=== PATIENT | female | born 1960 | race Caucasian/White ===

== ENCOUNTER 2021-07-24 07:35 | Day surgery (SDC) | payer BC, MEDICARE ==
[~2021-07-24 07:35] MED LIST: Lactated Ringers 1,000 ML IV SCH; Sodium Chloride 0.9% 10 ML Syringe FLUSH PRN
[2021-07-24] MEDS ORDERED: Propofol 200 MG/20 ML SDV IV ONE (07:36)
[2021-07-24] MEDS ORDERED: Lidocaine 2% 5 ML SDV INJECT ONE (07:36)
--- NOTE | 2021-07-24 09:17 | PCM.HP.2 ---
H&P History of Present Illness - General Date of Service: 07/24/21 Admit Problem/Dx: Admission Diagnosis/Problem Admission Diagnosis/Problem Colonoscopy Source of Information: Patient, Old Records History Limitations: Reports: No Limitations - History of Present Illness Initial Comments - Free Text/Narative: Here for colonoscopy, last one 2011. FH Rectal Cancer in sister - Related Data Allergies/Adverse Reactions: Allergies Allergy/AdvReac Type Severity Reaction Status Date / Time acetaminophen [From Percocet] Allergy Respiratory Verified 07/24/21 08:06 Distress blue dye Allergy Hives Verified 07/24/21 08:09 levothyroxine Allergy Itching Verified 07/24/21 08:08 meperidine [From Demerol] Allergy Respiratory Verified 07/24/21 08:07 Distress morphine Allergy Respiratory Verified 07/24/21 08:05 Distress oxycodone [From Percocet] Allergy Respiratory Verified 07/24/21 08:06 Distress red dye Allergy Hives Verified 07/24/21 08:09 yellow dye Allergy Hives Verified 07/24/21 08:09 Home Medications: Home Meds Aspirin [Adult Low Dose Aspirin EC] 81 mg PO DAILY 07/23/21 [History] Cyclobenzaprine [Flexeril] 10 mg PO BEDTIME 07/23/21 [History] Gabapentin [Neurontin] 600 mg PO TID 07/23/21 [History] Levothyroxine 75 mcg PO ACBREAKFAST 07/23/21 [History] Liothyronine Sodium [Cytomel] 5 mcg PO DAILY 07/23/21 [History] Multivitamin 1 each PO DAILY 07/23/21 [History] atorvaSTATin Calcium [Lipitor] 20 mg PO DAILY 07/23/21 [History] diphenhydrAMINE [Benadryl] 100 mg PO ASDIRECTED PRN 07/23/21 [History] traMADol [Ultram] 50 mg PO Q6H PRN 07/23/21 [History] Past Medical History HEENT History: Reports: Cataract Cardiovascular History: Reports: High Cholesterol Respiratory History: Reports: None Genitourinary History: Reports: None PRODUCTION HAND History: Reports: Musculoskeletal History: Reports: Neck Pain, Chronic Neurological History: Reports: None Psychiatric History: Reports: None Endocrine/Metabolic History: Reports: Hypothyroidism Hematologic History: Reports: None Immunologic History: Reports: None Oncologic (Cancer) History: Reports: Thyroid Dermatologic History: Reports: None - Infectious Disease History Infectious Disease History: Reports: Chicken Pox, Measles, Mumps - Past Surgical History Head Surgeries/Procedures: Reports: None HEENT Surgical History: Reports: Cataract Surgery, Laser Surgery Cardiovascular Surgical History: Reports: None Respiratory Surgical History: Reports: None GI Surgical History: Reports: Colonoscopy Female Surgical History: Reports: Section, Tubal Ligation Endocrine Surgical History: Reports: None Neurological Surgical History: Reports: C-Spine Musculoskeletal Surgical History: Reports: None Oncologic Surgical History: Reports: None Dermatological Surgical History: Reports: Skin Biopsy Social & Family History - Family History Family Medical History: Unobtainable - Tobacco Use Tobacco Use Status *Q: Never Tobacco User - Caffeine Use Caffeine Use: Reports: Coffee - Recreational Drug Use Recreational Drug Use: No H&P Review of Systems - Review of Systems: Review Of Systems: Comprehensive ROS is negative, except as noted in HPI. Exam - Exam Exam: See Below - Vital Signs Vital Signs: Last Vital Signs Temp 99.0 F 07/24/21 07:55 Pulse 76 07/24/21 07:55 Resp 20 07/24/21 07:55 BP 117/81 07/24/21 07:55 Pulse Ox 94 L 07/24/21 07:55 Weight: 65.317 kg - Exam General: Alert, Oriented Lungs: Clear to Auscultation, Normal Respiratory Effort Cardiovascular: Regular Rate, Regular Rhythm GI/Abdominal Exam: Soft, Non-Tender Sepsis Event Note - Focused Exam Vital Signs: Vital Signs Temp Pulse Resp BP Pulse Ox 07/24/21 07:55 99.0 F 76 20 117/81 94 L Problem List Initiated/Reviewed/Updated: Yes Orders Last 24hrs: Active Orders 24 hr Category Date Time Status Patient Status [ADT] Routine ADT 07/24/21 07:30 Active Patient to Empty Bladder [RC] ASDIRECTED Care 07/24/21 07:30 Active Verify Patient Consent Obtain [RC] ASDIRECTED Care 07/24/21 07:30 Active Nothing Per Oral Diet [DIET] Diet 07/24/21 Breakfast Ordered Lactated Ringers [Ringers, Lactated] 1,000 ml Med 07/24/21 07:30 Active IV ASDIRECTED Sodium Chloride 0.9% [Saline Flush] Med 07/24/21 07:30 Active 10 ml FLUSH ASDIRECTED PRN Peripheral IV Insertion Adult [OM.PC] Routine Oth 07/24/21 07:30 Ordered Resuscitation Status Routine Resus Stat 07/23/21 13:31 Ordered Medication Orders Lactated Ringer's (Ringers, Lactated) 1,000 mls @ 125 mls/hr IV ASDIRECTED SOCORRO Last Admin: 07/24/21 08:35 Dose: 125 mls/hr Documented by: ANGEL Sodium Chloride (Sodium Chloride 0.9% 10 Ml Syringe) 10 ml FLUSH ASDIRECTED PRN PRN Reason: Keep Vein Open Assessment/Plan Comment:: FH Rectal Ca; ok to proceed with colonoscopy. Risks and complications reviewed, consent obtained
--- NOTE | 2021-07-24 09:38 | PCM.OPNOTE ---
- General Post-Op/Procedure Note Date of Surgery/Procedure: 07/24/21 Operative Procedure(s): Colonoscopy Findings: Normal Pre Op Diagnosis: FH Rctal Ca, hx polyp Post-Op Diagnosis: Same Anesthesia Technique: MAC Primary Surgeon: Gary Inman Anesthesia Provider: Bindu Costello Complications: None Condition: Good
--- NOTE | 2021-07-24 11:32 | OR ---
DATE OF OPERATION: 07/24/2021 SURGEON: Gary Inman MD PREOPERATIVE DIAGNOSES: 1. Family history of rectal cancer in sister. 2. History of colon polyps. POSTOPERATIVE DIAGNOSIS: Normal colonoscopy. PROCEDURE: Colonoscopy. ANESTHESIA: IV sedation. PROCEDURE IN DETAIL: The patient was brought to the procedure room where she was placed on her left side and IV sedation administered. Digital rectal exam was performed which was normal. The colonoscope was inserted and advanced to the level of the cecum without difficulty. Cecal position was confirmed by identifying the appendiceal lumen and ileocecal valve. Prep was good and surfaces were well visualized. Upon withdrawing the scope, the ascending, transverse, and descending colon were normal in appearance. Sigmoid colon and rectum were normal. Retroflexion was normal. Air was removed and the scope withdrawn. The patient tolerated the procedure well and returned to recovery in stable condition. RECOMMENDATIONS: Recommend colon screening again in 5 years. /[id number] LILLIAN/RUMA
== END 2021-07-24 10:25 | disposition home or self-care (01) ==
LOC: FB.SDS 07:35
PROVIDERS: ATTEND Surgery
DX: Z12.11 Encounter for screening for malignant neoplasm of colon (principal); Z80.0 Family history of malignant neoplasm of digestive organs; Z86.010 Personal history of colon polyps; Z91.041 Radiographic dye allergy status; Z88.5 Allergy status to narcotic agent; Z88.8 Allergy status to other drugs, medicaments and biological substances; Z79.82 Long term (current) use of aspirin; Z79.899 Other long term (current) drug therapy; E78.00 Pure hypercholesterolemia, unspecified; E03.9 Hypothyroidism, unspecified; Z79.890 Hormone replacement therapy; Z98.890 Other specified postprocedural states
CPT/HCPCS: 00811-QZ; J2704; J7120